=== PATIENT | male | born 1940 | race Caucasian/White ===

== ENCOUNTER 2018-03-16 23:53 | Inpatient (IN) | payer MEDICARE, MEDICAID, OTHER, BC ==
[~2018-03-16] VITALS: Ht 175.3 cm; Wt 83.5 kg
[~2018-03-16 23:53] MED LIST: ALLO100T PO; ASPI-612 PO; ATOR10TA PO; Acetaminophen PO; Blood Sugar Diagnostic VI; CLOP75TA15 PO; DONE10TA44 PO; HYDR25TA86 PO; INSU100V28 SQ; MAGN400O6 PO; MEMA10TA PO; Oxybutynin Chloride PO; PANT40TA2 PO; PROP10TA68 PO; TAMS0.4C34 PO; TERA2CAP4 PO
--- NOTE | 2018-03-17 00:04 | NUR ---
PATIENT BIB [facility] FROM HOME, PATIENT WITH H/O DEMENTIA. A/OX1 AT THIS TIME. PATIENT'S CALLED 911 FOR WEAKNESS AND POSSIBLE UTI.
--- NOTE | 2018-03-17 00:10 | NUR ---
PATIENT IS AWAKE AND ALERT, ABLE TO FOLLOW COMMANDS, MOVES ALL EXTREMETIES.
[2018-03-17 00:44] LABS: BASOPHILS % (AUTO) 0.2 % (0.0-2.0); EOSINOPHILS # (AUTO) 0.1 K/uL (0.0-0.7); EOSINOPHILS % (AUTO) 0.6 % (0.0-7.0); HEMATOCRIT 37.9 % (36.7-47.1); HEMOGLOBIN 12.7 g/dL (12.5-16.3); LYMPHOCYTES # (AUTO) 1.2 K/uL (20.0-40.0); LYMPHOCYTES % (AUTO) 8.3 % (20.5-51.5); MEAN CORPUSCULAR HEMOGLOBIN 31.5 uug (23.8-33.4); MEAN CORPUSCULAR HGB CONC 34 g/dL (32.5-36.3); MEAN CORPUSCULAR VOLUME 93.8 fL (73.0-96.2); MONOCYTES # (AUTO) 1.4 K/uL (2.0-10.0); MONOCYTES % (AUTO) 9.4 % (0.0-11.0); NEUTROPHILS % (AUTO) 81.5 % (38.5-71.5); PLATELET COUNT (AUTO) 227 K/uL (152-348); RED BLOOD CELL COUNT(AUTO) 4.04 MIL/uL (4.06-5.63); WHITE BLOOD COUNT (AUTO) 14.7 K/uL (3.6-10.2)
[2018-03-17 00:46] LABS: CARBON DIOXIDE 24 mmol/L (21-32); CHLORIDE 106 mmol/L (98-107); CREATININE 1.4 mg/dL (0.6-1.3); GLUCOSE 143 mg/dL (74-106); POTASSIUM 4.5 mmol/L (3.5-5.1); UREA NITROGEN, BLOOD 19 mg/dL (7-18)
[2018-03-17 00:52] LABS: ALANINE AMINOTRANSFERASE 52 U/L (16-63); ALKALINE PHOSPHATASE 168 U/L (50-136); ASPARTATE AMINOTRANSFERASE 31 U/L (15-37); BILIRUBIN,DIRECT 0.1 mg/dL (0.0-0.2); BILIRUBIN,TOTAL 0.5 mg/dL (0.2-1.0); TOTAL PROTEIN, SERUM 7.8 g/dL (6.4-8.2)
[2018-03-17] MEDS ORDERED: MEMA10TA PO (01:00)
[2018-03-17] MEDS ORDERED: CITA20TA16 PO (01:00)
[2018-03-17] MEDS ORDERED: CEFTRIAXONE 1 G in IV DEXTROSE 5% 50 ML IV ONE (01:00)
[2018-03-17] MEDS ORDERED: CEFTRIAXONE 1 G VIAL ONE (01:16)
[2018-03-17 01:27] LABS: *BILIRUBIN,URIN NEGATIVE (NEGATIVE); *BLOOD, URINE NEGATIVE (NEGATIVE); *CLARITY,URINE CLOUDY (CLEAR); *COLOR,URINE YELLOW (YELLOW); *KETONES,URINE TRACE (NEGATIVE); *PROTEIN,URINE 1+ (NEGATIVE); *UROBILINOGEN,URINE 0.2 E.U./dl (NORMAL); LEUKOCYTE ESTERASE ,URINE 1+ (NEGATIVE); NITRITE, URINE NEGATIVE (NEGATIVE); PH,URINE 5.5 (5.0-8.0); UGLUCOSE NEGATIVE (NEGATIVE)
[2018-03-17] MEDS ORDERED: IV NORMAL SALINE 1000 ML BAG IV ONE (01:30)
--- NOTE | 2018-03-17 01:34 | NUR ---
EPIC PAGED, DR HAGER [employer].
[2018-03-17 01:36] LABS: RBC,URINE 0-3 /HPF (0-3)
[2018-03-17 01:38] LABS: BACTERIA,URINE FEW /HPF (NONE SEEN); SQUAMOUS EPITHELIAL CELL,UR FEW /HPF (NONE SEEN)
[2018-03-17 01:42] LABS: THYROID STIMULATING HORMONE 2.244 mIU/mL (0.358-3.740)
--- NOTE | 2018-03-17 01:55 | NUR ---
NO CALL RECEIVED FROM SASHA HAGER NP, EPIC PAGED AGAIN.
--- NOTE | 2018-03-17 02:19 | NUR ---
Pt. admitted to tele , under care of Alonso Pizano HAIRSPRING SETTER Belongs List completed. report given to BENOIT Chavez
[2018-03-17 02:35] VITALS: BP 108/67
[2018-03-17] MEDS ORDERED: Z GUARD REMEDY PASTE 57 GM TUBE TOP PRN (02:45)
[2018-03-17] MEDS ORDERED: MAGNESIUM HYDROXIDE 30 ML LIQUID UDC PO PRN (02:45)
[2018-03-17] MEDS ORDERED: DEXTROSE 50% 50 ML DISP.SYRIN IV PRN (02:45)
[2018-03-17] MEDS ORDERED: HYDROCODONE/APAP 5-325MG TABLET PO PRN (02:45)
[2018-03-17] MEDS ORDERED: INSULIN REGULAR, HUMAN 300 UNITS/3 ML VIAL SQ PRN (02:45)
[2018-03-17] MEDS ORDERED: ONDANSETRON 4 MG/2 ML VIAL IV PRN (02:45)
[2018-03-17] MEDS: IV NS 1000 ML 1,000 ML IV PRN ×2 (03:16→17:08)
[2018-03-17 04:00] VITALS: BP_SYST 108; BP_SYST 125; BP_DIAS 63; BP_DIAS 67
[2018-03-17 07:05] LABS: PHOSPHOROUS 3.1 mg/dL (2.5-4.9)
[2018-03-17] MEDS: BLOOD SUGAR DIAGNOSTIC 1 EACH STRIP VI SCH ×4 (07:11→21:18)
--- NOTE | 2018-03-17 07:38 | NUR ---
RECEIVED PATIENT IN BED ASLEEP AROUSES EASILY NO FACIAL GRIMACING OR MOANING AT THIS TIME PATIENT REMAINS ON IVF ORDERED WITH NO S/S OF INFILTERATION ON SITE ALL NEEDS ANTICIPATED AND SATISFIED MADE COMFORTABLE AND WILL CONTINUE TO OBSERVE.
[2018-03-17] MEDS: PANTOPRAZOLE SODIUM 40 MG VIAL IV SCH (08:13)
[2018-03-17] MEDS: DONEPEZIL 10 MG TABLET PO SCH (08:14)
[2018-03-17] MEDS: MEMANTINE HCL 5 MG TABLET PO SCH (08:14)
[2018-03-17] MEDS: CITALOPRAM 20 MG TABLET PO SCH (08:14)
[2018-03-17] MEDS: CLOPIDOGREL 75 MG TABLET PO SCH (08:14)
[2018-03-17] MEDS: INSULIN REGULAR, HUMAN 300 UNIT/3 ML VIAL SQ PRN ×2 (08:18→11:41)
[2018-03-17] MEDS: Z GUARD REMEDY PASTE 57 GM TUBE TOP SCH ×3 (08:42→21:18)
--- NOTE | 2018-03-17 08:51 | NUR ---
REMEDY PAST ALREADY APPLIED PATIENT HAS A PRN ORDER SO WILL START ROUTINE ORDERS TONITE.
[2018-03-17 11:43] VITALS: BP 105/54
--- NOTE | 2018-03-17 14:04 | NUR ---
PATIENT SEEN AND EXAMINED BY DR COWART WITH NEW ORDER FOR CT HEAD AND NOTED PATIENT TAKEN DOWN BY BED.
[2018-03-17 14:34] LABS: BASOPHILS # (AUTO) 0.1 K/uL (0.0-8.0); BASOPHILS % (AUTO) 0.8 % (0.0-2.0); EOSINOPHILS # (AUTO) 0.2 K/uL (0.0-0.7); EOSINOPHILS % (AUTO) 1.9 % (0.0-7.0); HEMATOCRIT 33.7 % (36.7-47.1); HEMOGLOBIN 11.3 g/dL (12.5-16.3); LYMPHOCYTES # (AUTO) 1.8 K/uL (20.0-40.0); LYMPHOCYTES % (AUTO) 15.9 % (20.5-51.5); MEAN CORPUSCULAR HEMOGLOBIN 32.3 uug (23.8-33.4); MEAN CORPUSCULAR HGB CONC 34 g/dL (32.5-36.3); MEAN CORPUSCULAR VOLUME 96.1 fL (73.0-96.2); MONOCYTES # (AUTO) 1.1 K/uL (2.0-10.0); MONOCYTES % (AUTO) 9.3 % (0.0-11.0); NEUTROPHILS # (AUTO) 8.3 K/uL (1.8-8.9); NEUTROPHILS % (AUTO) 72.1 % (38.5-71.5); PLATELET COUNT (AUTO) 184 K/uL (152-348); WHITE BLOOD COUNT (AUTO) 11.5 K/uL (3.6-10.2)
[2018-03-17 14:54] LABS: ALANINE AMINOTRANSFERASE 41 U/L (16-63); ALKALINE PHOSPHATASE 135 U/L (50-136); ASPARTATE AMINOTRANSFERASE 19 U/L (15-37); BILIRUBIN,TOTAL 0.4 mg/dL (0.2-1.0); CARBON DIOXIDE 25 mmol/L (21-32); CHLORIDE 108 mmol/L (98-107); GLUCOSE 108 mg/dL (74-106); MAGNESIUM 1.9 mg/dL (1.8-2.4); PHOSPHOROUS 2.9 mg/dL (2.5-4.9); POTASSIUM 3.6 mmol/L (3.5-5.1); TOTAL PROTEIN, SERUM 6.3 g/dL (6.4-8.2); UREA NITROGEN, BLOOD 16 mg/dL (7-18)
[2018-03-17 15:54] VITALS: BP 139/67
--- NOTE | 2018-03-17 17:45 | NUR ---
PATIENT HAS BEEN HAVING SOME DIFFICULTY WITH HIS DIET TENDS TO POCKET EVEN THOUGH HAS TEETH SHOWED SOME DIFFICULTY CHEWING HIS DIET MD AWARE DIET WAS FIRST CHANGE TO MECHANICAL DIET THEN CHANGED AGAIN TO PURRED PATIENT SEEMED TO TOLERATED THE PUREED DIET BETTER ORDER FOR SWALLOW EVAL RECEIVED AND NOTED.
--- NOTE | 2018-03-17 19:30 | NUR ---
PT ALERT AWAKE IN BED IN NO ACUTE DISTRESS. AT BEDSIDE ASSISTING WITH ADLS. SAW TAILER MATAINING SINUS RHYTHM. DENIES ANY PAIN, HEADACHES, OR SOB. PT REMINDED TO REQUEST FOR ASSISTANCE WHEN NEEDED. NO S/S OF HYPER/HYPOGLYCEMIA. CONTINUING ON NS IV FLUIDS AT 75ML/HR. WILL CONTINUE TO MONITOR. BED ALARM ON WITH 3 SIDE RAILS RAISED.
[2018-03-17 20:54] VITALS: BP 124/59
--- NOTE | 2018-03-17 20:59 | NUR ---
REPORT GIVEN TO NURSE JONNY. PATIENT IN STABLE CONDITION AT THIS TIME.
[2018-03-17] MEDS ORDERED: Medication Not On Formulary EA ([Oxybutynin Chloride] 5 MG) PO SCH (21:00)
--- NOTE | 2018-03-17 21:15 | NUR ---
RECEIVED PATIENT FROM RN. PATIENT IS ALERT TO SELF ONLY. CONFUSED AND DISORIENTED BUT PLEASANT WHEN APPROACHED AND FOLLOWS DIRECTIONS WELL. DENIES PAIN. NO S/S OF PAIN OR DISCOMFORT. NO RESP. DISTRESS NOTED. IVF INFUSING WELL. VSS. CALL LIGHT IN REACH. BED ALARM ON. ALL NEEDS ATTENDED. WILL CONTINUE TO MONITOR AND ASSESS.
[2018-03-17] MEDS: TAMSULOSIN HCL 0.4 MG CAP.SR.24H PO SCH (21:18)
[2018-03-17] MEDS: ATORVASTATIN 10 MG TABLET PO SCH (21:18)
[2018-03-17] MEDS: OXYBUTYNIN CHLORIDE 5 MG TABLET PO SCH (21:18)
[2018-03-17] MEDS: CEFTRIAXONE 1 G in IV DEXTROSE 5% 50 ML IV SCH (21:21)
--- NOTE | 2018-03-17 21:30 | NUR ---
PATIENT ON TELE SR. WILL CONTINUE TO MONITOR .
[2018-03-18] VITALS (7 sets, daily range): BP systolic 107–134; BP diastolic 47–65
--- NOTE | 2018-03-18 06:10 | NUR ---
PATIENT AWAKE IN BED. SLEPT AT VERY SMALL INTERVALS. ON TELE SB IN THE 50'S. VSS. IVF INFUSING WELL. BED ALARM ON. CALL LIGHT IN REACH. ALL NEEDS ATTENDED. WILL CONTINUE TO MONITOR AND ASSESS.
[2018-03-18] MEDS: BLOOD SUGAR DIAGNOSTIC 1 EACH STRIP VI SCH ×2 (06:37→11:49)
[2018-03-18 07:35] LABS: BASOPHILS % (AUTO) 0.3 % (0.0-2.0); EOSINOPHILS # (AUTO) 0.3 K/uL (0.0-0.7); HEMATOCRIT 33.5 % (36.7-47.1); HEMOGLOBIN 11.3 g/dL (12.5-16.3); LYMPHOCYTES # (AUTO) 1.3 K/uL (20.0-40.0); LYMPHOCYTES % (AUTO) 14.8 % (20.5-51.5); MEAN CORPUSCULAR HEMOGLOBIN 31.9 uug (23.8-33.4); MEAN CORPUSCULAR HGB CONC 34 g/dL (32.5-36.3); MEAN CORPUSCULAR VOLUME 94.6 fL (73.0-96.2); MONOCYTES # (AUTO) 0.7 K/uL (2.0-10.0); MONOCYTES % (AUTO) 8.1 % (0.0-11.0); NEUTROPHILS # (AUTO) 6.4 K/uL (1.8-8.9); NEUTROPHILS % (AUTO) 73.8 % (38.5-71.5); PLATELET COUNT (AUTO) 174 K/uL (152-348); RED BLOOD CELL COUNT(AUTO) 3.54 MIL/uL (4.06-5.63); WHITE BLOOD COUNT (AUTO) 8.7 K/uL (3.6-10.2)
[2018-03-18 07:45] LABS: CARBON DIOXIDE 26 mmol/L (21-32); CHLORIDE 107 mmol/L (98-107); GLUCOSE 81 mg/dL (74-106); MAGNESIUM 1.9 mg/dL (1.8-2.4); PHOSPHOROUS 2.7 mg/dL (2.5-4.9); POTASSIUM 3.8 mmol/L (3.5-5.1); UREA NITROGEN, BLOOD 11 mg/dL (7-18)
[2018-03-18] MEDS: CLOPIDOGREL 75 MG TABLET PO SCH (08:14)
[2018-03-18] MEDS: DONEPEZIL 10 MG TABLET PO SCH (08:14)
[2018-03-18] MEDS: MEMANTINE HCL 5 MG TABLET PO SCH (08:14)
[2018-03-18] MEDS: CITALOPRAM 20 MG TABLET PO SCH (08:15)
[2018-03-18] MEDS: PANTOPRAZOLE SODIUM 40 MG VIAL IV SCH (08:15)
[2018-03-18] MEDS: Z GUARD REMEDY PASTE 57 GM TUBE TOP SCH ×2 (08:17→20:33)
[2018-03-18] MEDS: IV NS 1000 ML 1,000 ML IV PRN (08:17)
--- NOTE | 2018-03-18 15:07 | NUR ---
report received from BENOIT Valderrama. Will resume care.
--- NOTE | 2018-03-18 19:00 | NUR ---
Nurse Notes: patient remained stable throughout the shift with no acute changes. No SOB or distress. No display of pain or discomforts noted. safety precautions observed. Hourly rounding done, call light within reach. Will endorse to oncoming shift for continuity of care.
--- NOTE | 2018-03-18 19:51 | NUR ---
Pt observed to be sitting up in bed and noted to be pleasantly confused at this time. Pt orientation provided. No s/s of acute distress noted at this time. Tele noted to be sinus rhythm Safe environment implemented at all times.
[2018-03-18] MEDS: ACETAMINOPHEN 325 MG TABLET PO PRN (20:32)
[2018-03-18] MEDS: CEFTRIAXONE 1 G in IV DEXTROSE 5% 50 ML IV SCH (20:32)
[2018-03-18] MEDS: ATORVASTATIN 10 MG TABLET PO SCH (20:32)
[2018-03-18] MEDS: TAMSULOSIN HCL 0.4 MG CAP.SR.24H PO SCH (20:32)
[2018-03-18] MEDS: OXYBUTYNIN CHLORIDE 5 MG TABLET PO SCH (20:32)
[2018-03-19] MEDS: IV NS 1000 ML 1,000 ML IV PRN ×2 (02:24→18:50)
[2018-03-19 03:40] VITALS: BP 101/55
--- NOTE | 2018-03-19 06:00 | NUR ---
Pt stable throughout the night. All needs attended to. Safe environment implemented at all times.
[2018-03-19] MEDS: PANTOPRAZOLE SODIUM 40 MG TABLET.DR PO SCH (06:15)
[2018-03-19] MEDS: BLOOD SUGAR DIAGNOSTIC 1 EACH STRIP VI SCH ×2 (06:15→08:52)
[2018-03-19 06:19] LABS: BASOPHILS % (AUTO) 0.3 % (0.0-2.0); EOSINOPHILS # (AUTO) 0.1 K/uL (0.0-0.7); EOSINOPHILS % (AUTO) 0.5 % (0.0-7.0); HEMATOCRIT 33.3 % (36.7-47.1); HEMOGLOBIN 11.3 g/dL (12.5-16.3); LYMPHOCYTES # (AUTO) 0.8 K/uL (20.0-40.0); LYMPHOCYTES % (AUTO) 7.5 % (20.5-51.5); MEAN CORPUSCULAR HEMOGLOBIN 32.4 uug (23.8-33.4); MEAN CORPUSCULAR HGB CONC 34 g/dL (32.5-36.3); MEAN CORPUSCULAR VOLUME 95.1 fL (73.0-96.2); MONOCYTES # (AUTO) 0.8 K/uL (2.0-10.0); MONOCYTES % (AUTO) 8.1 % (0.0-11.0); NEUTROPHILS # (AUTO) 8.5 K/uL (1.8-8.9); NEUTROPHILS % (AUTO) 83.6 % (38.5-71.5); PLATELET COUNT (AUTO) 163 K/uL (152-348); WHITE BLOOD COUNT (AUTO) 10.1 K/uL (3.6-10.2)
[2018-03-19 06:27] LABS: ALANINE AMINOTRANSFERASE 46 U/L (16-63); ALKALINE PHOSPHATASE 129 U/L (50-136); ASPARTATE AMINOTRANSFERASE 28 U/L (15-37); BILIRUBIN,TOTAL 0.4 mg/dL (0.2-1.0); CARBON DIOXIDE 24 mmol/L (21-32); CHLORIDE 107 mmol/L (98-107); CREATININE 1.1 mg/dL (0.6-1.3); GLUCOSE 89 mg/dL (74-106); MAGNESIUM 1.8 mg/dL (1.8-2.4); PHOSPHOROUS 3.4 mg/dL (2.5-4.9); TOTAL PROTEIN, SERUM 6.3 g/dL (6.4-8.2); UREA NITROGEN, BLOOD 11 mg/dL (7-18)
--- NOTE | 2018-03-19 07:20 | NUR ---
RECEIVED REPORT FROM CODING TEAM LEAD NURSE, PATIENT IN BED, NO DISTRESS NOTED AT THIS TIME, BED IN LOW POSITION, SIDE RAILS UP X2, BED ALARM ON.
[2018-03-19] MEDS: CITALOPRAM 20 MG TABLET PO SCH (08:41)
[2018-03-19] MEDS: CLOPIDOGREL 75 MG TABLET PO SCH (08:42)
[2018-03-19] MEDS: MEMANTINE HCL 5 MG TABLET PO SCH (08:42)
[2018-03-19] MEDS: DONEPEZIL 10 MG TABLET PO SCH (08:42)
[2018-03-19] MEDS: Z GUARD REMEDY PASTE 57 GM TUBE TOP SCH ×2 (08:43→20:27)
[2018-03-19 10:55] VITALS: BP 109/48
[2018-03-19 15:13] VITALS: BP 96/60
--- NOTE | 2018-03-19 18:46 | NUR ---
Patient was cooperative with care, ambulated with physical therapy and frequent repositioning encouraged. No distress throughout the shift, all needs met. New insurance ID card inserted by admissions. at bedside at this time. No distress noted, bed in low position, side rails up x2 bed alarm set. .
[2018-03-19 19:00] VITALS: BP 122/75
--- NOTE | 2018-03-19 19:50 | NUR ---
Observed to be sitting up in bed with no s/s of distress. Pt appears to be comfortable and denies any discomfort at this time. Safe environment implemented. Call light within reach.
[2018-03-19] MEDS: ATORVASTATIN 10 MG TABLET PO SCH (20:27)
[2018-03-19] MEDS: TAMSULOSIN HCL 0.4 MG CAP.SR.24H PO SCH (20:27)
[2018-03-19] MEDS: OXYBUTYNIN CHLORIDE 5 MG TABLET PO SCH (20:27)
[2018-03-19] MEDS: CEFTRIAXONE 1 G in IV DEXTROSE 5% 50 ML IV SCH (20:27)
[2018-03-20 04:00] VITALS: BP 122/57
[2018-03-20 05:41] LABS: BASOPHILS % (AUTO) 0.4 % (0.0-2.0); EOSINOPHILS % (AUTO) 0.6 % (0.0-7.0); HEMATOCRIT 33.1 % (36.7-47.1); HEMOGLOBIN 11.4 g/dL (12.5-16.3); LYMPHOCYTES % (AUTO) 12.9 % (20.5-51.5); MEAN CORPUSCULAR HEMOGLOBIN 32.6 uug (23.8-33.4); MEAN CORPUSCULAR HGB CONC 35 g/dL (32.5-36.3); MEAN CORPUSCULAR VOLUME 94.7 fL (73.0-96.2); MONOCYTES # (AUTO) 0.9 K/uL (2.0-10.0); MONOCYTES % (AUTO) 11.4 % (0.0-11.0); NEUTROPHILS # (AUTO) 5.6 K/uL (1.8-8.9); NEUTROPHILS % (AUTO) 74.7 % (38.5-71.5); PLATELET COUNT (AUTO) 166 K/uL (152-348); WHITE BLOOD COUNT (AUTO) 7.5 K/uL (3.6-10.2)
--- NOTE | 2018-03-20 05:45 | NUR ---
No changes throughout the night, pt stable. Kept clean and dry. Safe environment implemented.
[2018-03-20 05:57] LABS: ALANINE AMINOTRANSFERASE 37 U/L (16-63); ALKALINE PHOSPHATASE 122 U/L (50-136); ASPARTATE AMINOTRANSFERASE 24 U/L (15-37); BILIRUBIN,TOTAL 0.4 mg/dL (0.2-1.0); CARBON DIOXIDE 23 mmol/L (21-32); CHLORIDE 109 mmol/L (98-107); CREATININE 0.9 mg/dL (0.6-1.3); GLUCOSE 92 mg/dL (74-106); MAGNESIUM 1.9 mg/dL (1.8-2.4); PHOSPHOROUS 3.1 mg/dL (2.5-4.9); POTASSIUM 3.8 mmol/L (3.5-5.1); TOTAL PROTEIN, SERUM 6.2 g/dL (6.4-8.2); UREA NITROGEN, BLOOD 12 mg/dL (7-18)
[2018-03-20] MEDS: PANTOPRAZOLE SODIUM 40 MG TABLET.DR PO SCH (06:35)
--- NOTE | 2018-03-20 07:20 | NUR ---
Received report from cloth layer nurse, patient in bed, asleep, no distress noted at this time. bed in low position, side rails up x2, bed alarm on.
[2018-03-20] MEDS: IV NS 1000 ML 1,000 ML IV PRN (09:01)
[2018-03-20] MEDS: MEMANTINE HCL 5 MG TABLET PO SCH (09:02)
[2018-03-20] MEDS: CITALOPRAM 20 MG TABLET PO SCH (09:02)
[2018-03-20] MEDS: CLOPIDOGREL 75 MG TABLET PO SCH (09:02)
[2018-03-20] MEDS: Z GUARD REMEDY PASTE 57 GM TUBE TOP SCH ×2 (09:02→20:03)
[2018-03-20] MEDS: DONEPEZIL 10 MG TABLET PO SCH (09:02)
[2018-03-20] MEDS: BLOOD SUGAR DIAGNOSTIC 1 EACH STRIP VI SCH (09:09)
[2018-03-20 11:27] VITALS: BP 110/56
[2018-03-20] MEDS: CEPHALEXIN MONOHYDRATE 500 MG CAPSULE PO SCH ×2 (14:40→21:17)
[2018-03-20 15:55] VITALS: BP 132/66
--- NOTE | 2018-03-20 17:52 | NUR ---
Patient has been cooperative with care, no distress noted throughout shift. spoke with case management in depth today about discharge plan. Currently patient is in bed, no distress noted bed in low position, side rails up x2. Bed alarm on.
--- NOTE | 2018-03-20 19:30 | NUR ---
Patient lying comfortably at start of shift with no acute distress noted. Patient noted with confusion. Pertinent assessment completed. Vital signs within range at beginning of shift. Noted with IV site right wrist 22G flowing with NS at 75cc/hr. No s/s of infiltration or swelling at IV site. On ATB therapy for UTI. Bed in low position & locked. Call light within reach. Will continue to monitor through shift.
[2018-03-20 19:32] VITALS: BP 138/66
[2018-03-20] MEDS: TAMSULOSIN HCL 0.4 MG CAP.SR.24H PO SCH (20:02)
[2018-03-20] MEDS: ATORVASTATIN 10 MG TABLET PO SCH (20:02)
[2018-03-20] MEDS: OXYBUTYNIN CHLORIDE 5 MG TABLET PO SCH (20:03)
[2018-03-21 03:42] VITALS: BP 138/64
[2018-03-21] MEDS: IV NS 1000 ML 1,000 ML IV PRN ×2 (04:39→11:30)
[2018-03-21] MEDS: PANTOPRAZOLE SODIUM 40 MG TABLET.DR PO SCH (06:05)
[2018-03-21] MEDS: CEPHALEXIN MONOHYDRATE 500 MG CAPSULE PO SCH ×2 (06:05→13:06)
--- NOTE | 2018-03-21 06:31 | NUR ---
Patient compliant with care. Slept intermittently through the night. All medications administered as per MD order. Needs attended to promptly. Patient kept clean & dry. Changed per soiling. Skin care provided. Turned & reposition every 2 hours. Safety measures maintained through shift. Call light within reach. Will endorse to day shift nurse.
[2018-03-21 07:24] LABS: BASOPHILS # (AUTO) 0.1 K/uL (0.0-8.0); BASOPHILS % (AUTO) 0.7 % (0.0-2.0); EOSINOPHILS # (AUTO) 0.1 K/uL (0.0-0.7); EOSINOPHILS % (AUTO) 0.9 % (0.0-7.0); HEMATOCRIT 34.9 % (36.7-47.1); LYMPHOCYTES # (AUTO) 1.2 K/uL (20.0-40.0); LYMPHOCYTES % (AUTO) 16.2 % (20.5-51.5); MEAN CORPUSCULAR HEMOGLOBIN 32.6 uug (23.8-33.4); MEAN CORPUSCULAR HGB CONC 35 g/dL (32.5-36.3); MEAN CORPUSCULAR VOLUME 94.5 fL (73.0-96.2); MONOCYTES # (AUTO) 0.9 K/uL (2.0-10.0); MONOCYTES % (AUTO) 11.6 % (0.0-11.0); NEUTROPHILS # (AUTO) 5.4 K/uL (1.8-8.9); NEUTROPHILS % (AUTO) 70.6 % (38.5-71.5); PLATELET COUNT (AUTO) 181 K/uL (152-348); RED BLOOD CELL COUNT(AUTO) 3.69 MIL/uL (4.06-5.63); WHITE BLOOD COUNT (AUTO) 7.6 K/uL (3.6-10.2)
[2018-03-21 07:41] LABS: ALANINE AMINOTRANSFERASE 47 U/L (16-63); ALKALINE PHOSPHATASE 127 U/L (50-136); ASPARTATE AMINOTRANSFERASE 29 U/L (15-37); BILIRUBIN,TOTAL 0.4 mg/dL (0.2-1.0); CARBON DIOXIDE 27 mmol/L (21-32); CHLORIDE 108 mmol/L (98-107); CREATININE 1.1 mg/dL (0.6-1.3); GLUCOSE 86 mg/dL (74-106); MAGNESIUM 1.9 mg/dL (1.8-2.4); PHOSPHOROUS 3.2 mg/dL (2.5-4.9); POTASSIUM 3.7 mmol/L (3.5-5.1); TOTAL PROTEIN, SERUM 6.8 g/dL (6.4-8.2); UREA NITROGEN, BLOOD 13 mg/dL (7-18)
--- NOTE | 2018-03-21 08:00 | NUR ---
AWAKE FORGETFUL BUT COOPERATE AND FOLLOW SIMPLE DIRECTION CONTINUE IVF NO SOB OR PAIN RESTING WITH CALL LIGHT IN REACH AND BED ALARM ON
[2018-03-21] MEDS: ACETAMINOPHEN 325 MG TABLET PO PRN (08:57)
[2018-03-21] MEDS: DONEPEZIL 10 MG TABLET PO SCH (08:57)
[2018-03-21] MEDS: CLOPIDOGREL 75 MG TABLET PO SCH (08:57)
[2018-03-21] MEDS: MEMANTINE HCL 5 MG TABLET PO SCH (08:57)
[2018-03-21] MEDS: CITALOPRAM 20 MG TABLET PO SCH (08:57)
[2018-03-21] MEDS: Z GUARD REMEDY PASTE 57 GM TUBE TOP SCH (08:58)
[2018-03-21] MEDS: BLOOD SUGAR DIAGNOSTIC 1 EACH STRIP VI SCH (09:05)
[2018-03-21 11:03] VITALS: BP 127/70
--- NOTE | 2018-03-21 12:00 | NUR ---
D/C PLANNING WORKING BY [facility] TODAY STILL PENDING NO BED AVAILABLE YET
[2018-03-21] MEDS ORDERED: CEPH500C2 PO (13:33)
[2018-03-21] MEDS ORDERED: ACET325T53 PO (13:33)
[2018-03-21] MEDS ORDERED: LACT1CAP59 PO (13:33)
[2018-03-21] MEDS ORDERED: Blood Sugar Diagnostic VI (13:33)
[2018-03-21] MEDS ORDERED: PANT40TA2 PO (13:33)
[2018-03-21 15:04] VITALS: BP 118/58
--- NOTE | 2018-03-21 17:30 | NUR ---
PATIENT AT BEDSIDE STATE ,HE RUN OUT OF DAY FROM [employer] , REFUSED TO COMPLETE WORKING ON D/C PAPER OR TAKING PICTURE ,SHE SAID HE CAN NOT GO BACK TO SN[facility] . WAITING FOR SNF TO BE CLEAR TO GO
--- NOTE | 2018-03-21 17:30 | NUR ---
DR MILLS STATE TO D/C BACK TO [facility] TODAY AND [facility] WAS CALL TO CONFIRM ,THEY STILL WORKING ON BUT DOES NOT CLEAR TO GO YET
--- NOTE | 2018-03-21 18:45 | NUR ---
REPORT GIVEN TO SNF NURSE JAVIER VIA TEL AND D/C INSTRUCTION GIVEN TO PT/ ,UNDERSTAND AND SIGNS D/C SHEET HL WILL D/C PRIOR D/C HOME TODAY
[2018-03-21 19:31] VITALS: BP 144/68
--- NOTE | 2018-03-21 20:00 | NUR ---
Received patient laying comfortably in bed. is at bedside. No acute distress noted. Patient is A/O x 1. Noted multiple scratch on forehead. On Room air. Safety initiated. Call light within reach. Will closely monitor.
--- NOTE | 2018-03-21 20:47 | NUR ---
Patient was picked up by transport team to go to [facility]. Perineal care provided. Zguard applied. Discharge protocol followed. IV taken out. Name band taken out. Patient's vital signs stable. In no acute distress. Belongings given to transport team.
== END 2018-03-21 21:22 | DRG 871 ==
LOC: ER 23:54 → TELE 03-17 02:16 → MED 03-19 14:15
PROVIDERS: ADMIT Hospitalist; ATTEND Nurse Practitioner Acute Care
DX: A41.51 Sepsis due to Escherichia coli [E. coli] (principal); G92 Toxic encephalopathy; N17.0 Acute kidney failure with tubular necrosis; N39.0 Urinary tract infection, site not specified; G91.2 (Idiopathic) normal pressure hydrocephalus; E44.0 Moderate protein-calorie malnutrition; R00.1 Bradycardia, unspecified; I25.10 Atherosclerotic heart disease of native coronary artery without angina pectoris; I10 Essential (primary) hypertension; Z95.1 Presence of aortocoronary bypass graft; G90.9 Disorder of the autonomic nervous system, unspecified; R26.9 Unspecified abnormalities of gait and mobility; N39.498 Other specified urinary incontinence; M10.9 Gout, unspecified; I25.2 Old myocardial infarction; E86.0 Dehydration; K21.9 Gastro-esophageal reflux disease without esophagitis; N40.1 Benign prostatic hyperplasia with lower urinary tract symptoms; Z79.82 Long term (current) use of aspirin; Z87.440 Personal history of urinary (tract) infections; Z87.891 Personal history of nicotine dependence; E11.65 Type 2 diabetes mellitus with hyperglycemia; D69.6 Thrombocytopenia, unspecified; Z68.27 Body mass index [BMI] 27.0-27.9, adult; D64.9 Anemia, unspecified; M19.90 Unspecified osteoarthritis, unspecified site; Z79.899 Other long term (current) drug therapy; Z79.84 Long term (current) use of oral hypoglycemic drugs; Z79.02 Long term (current) use of antithrombotics/antiplatelets; K59.09 Other constipation; F03.90 Unspecified dementia, unspecified severity, without behavioral disturbance, psychotic disturbance, mood disturbance, and anxiety; I67.2 Cerebral atherosclerosis; Z91.81 History of falling
CPT/HCPCS: 36415; 70030-TC; 70450; 71045; 83605; 83735; 84100; 84443; 85025; 85730; 87040; 87077; 87086; 92610; 93005; 93307; 97116; 97530; A4663; C1758; C9113; J0696; J1815; J7030; J7060